=== PATIENT | male | born 1950 | race Caucasian/White ===

== ENCOUNTER 2018-06-20 20:08 | Emergency (ER) | payer MEDICARE, OTHER ==
[2018-06-20 20:21] LABS: #Basophils 0.1 thou/uL (0.0-0.2); #Eosinphils 0.2 thou/uL (0.0-0.7); #Lymphocytes 2.3 thou/uL (1.20-3.40); #Monocytes 0.5 thou/uL (0.11-0.59); #Neutrophils 3.9 thou/uL (1.40-6.50); %Basophils 1.2 % (0.0-1.0); %Eosinophils 2.9 % (0.0-10.0); %Lymphocytes 32.6 % (21.0-51.0); %Monocytes 7.6 % (0.0-10.0); %Neutrophils 55.8 % (42.0-75.0); Hemoglobin 14.2 g/dL (14.0-18.0); Mean Corpuscular HGB CONC 35.1 g/dL (32.0-36.0); Mean Corpuscular Hemoglobin 31.3 pg (27.0-31.0); Mean Corpuscular Volume 89.3 fL (78.0-98.0); Mean Platelet Volume 7.5 fL (7.4-10.4); Platelet Count 135 thou/uL (130-400); RBC Distribution Width 11.5 % (11.5-14.5); Red Blood Cell (RBC) Count 4.53 mill/uL (4.70-6.10)
[2018-06-20 20:38] LABS: ALT (SGPT) 27 U/L (8-55); AST (SGOT) 27 U/L (5-34); Albumin 4.3 g/dL (3.4-4.8); Alkaline Phosphatase 82 U/L (40-150); Anion Gap 14 mmol/L (10-20); BUN (Urea Nitrogen) 18 mg/dL (8.4-25.7); Bilirubin, Total 0.5 mg/dL (0.2-1.2); Calc. Creatinine Clearance 0 mL/min (70-130); Calcium 9.8 mg/dL (7.8-10.44); Carbon Dioxide 26 mmol/L (23-31); Chloride 105 mmol/L (98-107); Estimated GFR-MDRD 50; Globulin 2.8 g/dL (2.4-3.5); Glucose 143 mg/dL (80-115); Potassium 3.9 mmol/L (3.5-5.1); Protein, Total 7.1 g/dL (5.8-8.1); Sodium 141 mmol/L (136-145)
--- NOTE | 2018-06-20 23:29 | RAD ---
PORTABLE CHEST 9 AP portable film at 1945 is compared with a 09/19/15 study. The heart is upper normal in size but there are no congestive changes or pleural effusions. The lungs are clear. There is no mediastinal widening or shift. IMPRESSION: No acute thoracic finding. POS: HOME
--- NOTE | 2018-06-20 23:36 | CT ---
CT CHEST, ABDOMEN AND PELVIS WITHOUT CONTRAST 06/20/[address] of the chest, abdomen and pelvis was performed for evaluation following trauma. The scan wa s done without IV contrast due to a reported contrast allergy. Axial slices were acquired, then coron al and sagittal reconstructions were done. CT OF THE THORAX: The lungs are fully inflated and clear. There is no sign of contusion, pneumothorax, or pleural effus ions. The mediastinum showed no widening or hematoma. Coronary artery calcifications are noted in the LAD. No mediastinal mass or adenopathy was seen. A hiatal hernia is noted in the lower chest in the midline. The surrounding ribs and thoracic vertebrae all appeared intact. CT ABDOMEN AND PELVIS: The liver, spleen, pancreas, gallbladder, adrenal glands, kidneys and abdominal aorta showed no acute findings within the limitations of a noncontrast study. There was no sign of laceration or hematoma of any major organ. The bowel shows no distention or wall thickening. There is no free air or free fl uid seen. CT of the pelvis shows no pelvic masses, fluid collections, or hematomas. The pelvic bones and lumbar spine all appeared intact. An incidental finding was an ovoid 2.8 cm near water density mass in the midline of the anterior abdo kiara wall a few centimeters above the umbilicus. It may be a small cyst, but it is of no real concer n. IMPRESSION: 1. No acute traumatic findings. 2. Hiatal hernia. 3. Other changes as listed above. POS: HOME
== END 2018-06-20 21:12 | disposition home or self-care (01) ==
LOC: BURERS 20:08
DX: S20.212A Contusion of left front wall of thorax, initial encounter (principal); S80.11XA Contusion of right lower leg, initial encounter; I47.1 Supraventricular tachycardia; Z79.899 Other long term (current) drug therapy; W55.29XA Other contact with cow, initial encounter
CPT/HCPCS: 71045; 71250; 71260; 74177; 80053; 83605; 85025

== ENCOUNTER 2019-08-24 13:13 | Emergency (ER) | payer MEDICARE ==
[2019-08-24] MEDS ORDERED: Aspirin Chewable 81 MG TAB ONE (13:18)
[2019-08-24 13:38] LABS: INR-International Normal Ratio 1.1; Prothrombin Time 13.7 SEC (12.0-14.7)
[2019-08-24 13:48] LABS: ALT (SGPT) 24 U/L (8-55); AST (SGOT) 21 U/L (5-34); Albumin 4.1 g/dL (3.4-4.8); Alkaline Phosphatase 66 U/L (40-110); Anion Gap 12 mmol/L (10-20); BUN (Urea Nitrogen) 22 mg/dL (8.4-25.7); Bilirubin, Total 0.5 mg/dL (0.2-1.2); Calc. Creatinine Clearance 0 mL/min (70-130); Calcium 8.9 mg/dL (7.8-10.44); Carbon Dioxide 25 mmol/L (23-31); Chloride 106 mmol/L (98-107); Estimated GFR-MDRD 63; Globulin 2.5 g/dL (2.4-3.5); Glucose 169 mg/dL (80-115); Potassium 3.9 mmol/L (3.5-5.1); Protein, Total 6.6 g/dL (5.8-8.1); Sodium 139 mmol/L (136-145)
[2019-08-24] MEDS ORDERED: methylPREDNISolone Sod Succ/PF 125 MG/2 ML VIAL ONE (13:48)
[2019-08-24] MEDS ORDERED: Famotidine In NaCl 20 mg/50 ml Premix Bag ONE (13:48)
[2019-08-24] MEDS ORDERED: diphenhydrAMINE 50 MG/ML VIAL ONE (13:48)
[2019-08-24 13:49] LABS: #Eosinphils 0.2 thou/uL (0.0-0.7); #Lymphocytes 1.8 thou/uL (1.20-3.40); #Monocytes 0.4 thou/uL (0.11-0.59); #Neutrophils 3.2 thou/uL (1.40-6.50); %Basophils 0.9 % (0.0-1.0); %Eosinophils 3.2 % (0.0-10.0); %Lymphocytes 31.9 % (21.0-51.0); %Monocytes 6.7 % (0.0-10.0); %Neutrophils 57.3 % (42.0-75.0); Hemoglobin 13.7 g/dL (14.0-18.0); Mean Corpuscular HGB CONC 31.6 g/dL (32.0-36.0); Mean Corpuscular Hemoglobin 30.5 pg (27.0-31.0); Mean Corpuscular Volume 96.3 fL (78.0-98.0); Mean Platelet Volume 7.8 fL (7.4-10.4); Platelet Count 118 thou/uL (130-400); Red Blood Cell (RBC) Count 4.48 mill/uL (4.70-6.10); White Blood Cell (WBC) Count 5.5 thou/uL (4.8-10.8)
[2019-08-24 13:50] LABS: MDiff Complete? YES; Platelet Morphology Comment Appears Decreased
--- NOTE | 2019-08-24 13:54 | CT ---
CT OF THE BRAIN WITHOUT CONTRAST: 08/24/[address] was done for evaluation of possible stroke. The ventricles are normal in size with n o shift. No territorial stroke pattern was seen. There are several areas of patchy hypodensities thro ughout the deep white matter bilaterally that are most typical of chronic ischemic change. Small foca l acute strokes would be missed against this background. There is no bleeding, mass, or edema. The s kull appears normal. The visible paranasal sinuses and mastoid air cells are clear. IMPRESSION: Chronic ischemic changes but no definite acute findings. See limitations above. Findings discussed with Dr. Wen at 1330 on 08/24/19. POS: HOME
== END 2019-08-24 14:52 | disposition short-term general hospital (02) ==
LOC: BURERS 13:13
DX: I63.9 Cerebral infarction, unspecified (principal); I10 Essential (primary) hypertension; F41.9 Anxiety disorder, unspecified; F32.9 Major depressive disorder, single episode, unspecified; Z79.899 Other long term (current) drug therapy
CPT/HCPCS: 70450; 80053; 84484; 85025; 85610; 93005; 96374; 96375; 96376; J1200; J2930

== ENCOUNTER 2024-02-21 15:28 | Emergency (ER) | payer MEDICARE ==
[2024-02-21 16:23] LABS: #Eosinophils 0.1 thou/uL (0.0-0.7); #Lymphocytes 0.8 thou/uL (1.20-3.40); #Monocytes 0.5 thou/uL (0.11-0.59); %Basophils 0.4 % (0.0-1.0); %Eosinophils 1.3 % (0.0-10.0); %Monocytes 7.1 % (0.0-10.0); %Neutrophils 79.2 % (42.0-75.0); Hematocrit 42.5 % (42.0-52.0); Hemoglobin 13.7 g/dL (14.0-18.0); Mean Corpuscular HGB CONC 32.2 g/dL (32.0-36.0); Mean Corpuscular Hemoglobin 31.1 pg (27.0-31.0); Mean Corpuscular Volume 96.7 fl (78.0-98.0); Mean Platelet Volume 6.1 fL (7.4-10.4); Platelet Count 155 10x3/uL (130-400); RBC Distribution Width 11.1 % (11.5-14.5); White Blood Cell (WBC) Count 6.3 10x3/uL (4.8-10.8)
[2024-02-21 16:36] LABS: Troponin I Less than 0.010 ng/mL (< 0.028)
[2024-02-21 16:56] LABS: ALT (SGPT) 20 U/L (8-55); AST (SGOT) 23 U/L (5-34); Albumin 3.4 g/dL (3.4-4.8); Alkaline Phosphatase 120 U/L (40-110); Anion Gap 16 mmol/L (10-20); BUN (Urea Nitrogen) 16 mg/dL (8.4-25.7); Bilirubin, Total 0.2 mg/dL (0.2-1.2); Calc. Creatinine Clearance 0 mL/min (70-130); Calcium 9.3 mg/dL (7.8-10.44); Carbon Dioxide 22 mmol/L (23-31); Chloride 105 mmol/L (98-107); Estimated GFR 86; Globulin 3.2 g/dL (2.4-3.5); Glucose 133 mg/dL (83-110); Potassium 4.4 mmol/L (3.5-5.1); Protein, Total 6.6 g/dL (5.8-8.1); Sodium 139 mmol/L (136-145)
[2024-02-21] MEDS ORDERED: Lorazepam 2 MG/ML VIAL ONE (16:58)
[2024-02-21 16:59] LABS: Bilirubin Negative (Negative); Blood, Urine Negative (Negative); Clarity Cloudy (Clear); Glucose, Urine (Dipstick) 250 mg/dL (Negative); Ketone, Urine Negative (Negative); Leukocyte Negative (Negative); Nitrite Negative (Negative); Protein, Urine (Dipstick) Negative (Neg-Trace); pH, Urine 7.5 (5.0-9.0)
[2024-02-21 17:00] LABS: Bacteria/HPF 1+ HPF (None Seen); CAUTI Indications for Culture Alt mental st,lethar; RBC/HPF None Seen HPF (0-3); Squamous Epithelial 0-3 HPF (0-3); WBC/HPF None Seen HPF (0-3)
[2024-02-21 17:01] LABS: Urine Culture Reflex No No
== END 2024-02-21 18:31 | disposition home or self-care (01) ==
LOC: BURERS 15:28
DX: R19.7 Diarrhea, unspecified (principal); F41.9 Anxiety disorder, unspecified; I10 Essential (primary) hypertension; Z79.82 Long term (current) use of aspirin; Z79.899 Other long term (current) drug therapy
CPT/HCPCS: 71045; 80053; 81001; 84484; 85025; 93005; 96360; J2060

== ENCOUNTER 2024-06-14 18:15 | Emergency (ER) | payer MEDICARE ==
[2024-06-14] MEDS ORDERED: Benzonatate 100 MG CAP ONE (18:44)
[2024-06-14] MEDS ORDERED: predniSONE 20 MG TAB ONE (18:44)
[2024-06-14] MEDS ORDERED: Acetaminophen 500 MG TAB ONE (18:44)
== END 2024-06-14 19:23 ==
LOC: BURERS 18:15
DX: J11.1 Influenza due to unidentified influenza virus with other respiratory manifestations (principal); I10 Essential (primary) hypertension; Z79.82 Long term (current) use of aspirin; Z79.899 Other long term (current) drug therapy
CPT/HCPCS: 87400; 87426; 99283; J7512

== ENCOUNTER 2025-03-23 15:35 | Emergency (ER) | payer MEDICARE ==
[2025-03-23 16:17] LABS: Hematocrit 42.3 % (42.0-52.0); Hemoglobin 14.5 g/dL (14.0-18.0); Mean Corpuscular Hemoglobin 32.4 pg (27.0-31.0); Mean Corpuscular Volume 94.8 fl (78.0-98.0); Platelet Count 144 10x3/uL (130-400); Red Blood Cell (RBC) Count 4.46 mill/uL (4.70-6.10); White Blood Cell (WBC) Count 11.6 10x3/uL (4.8-10.8)
[2025-03-23 16:25] LABS: ALT (SGPT) 17 U/L (Less than 45); AST (SGOT) 22 U/L (11-34); Albumin 4.1 g/dL (3.1-4.5); Alkaline Phosphatase 110 U/L (40-110); Anion Gap 15 mmol/L (10-20); BUN (Urea Nitrogen) 20 mg/dL (8.4-25.7); Bilirubin, Total 0.6 mg/dL (0.3-1.2); Calc. Creatinine Clearance 0 mL/min (70-130); Calcium 9.6 mg/dL (7.8-10.44); Carbon Dioxide 24 mmol/L (23-31); Chloride 105 mmol/L (98-107); Globulin 2.7 g/dL (2.4-3.5); Glucose 159 mg/dL (83-110); Potassium 4.3 mmol/L (3.5-5.1); Sodium 140 mmol/L (136-145)
[2025-03-23 16:27] LABS: MDiff Complete? YES
[2025-03-23] MEDS ORDERED: Ketorolac Tromethamine 30 MG (1 mL) VIAL ONE (17:14)
[2025-03-23 17:42] LABS: CAUTI Indications for Culture Dysuria,urgency,freq; Glucose, Urine (Dipstick) Negative (Negative); Leukocyte Negative (Negative); Protein, Urine (Dipstick) Negative (Neg-Trace); RBC/HPF None Seen HPF (0-3); Specific Gravity, Urine 1.020 (1.005-1.030); WBC/HPF None Seen HPF (0-3)
[2025-03-23 17:43] LABS: Bacteria/HPF None Seen HPF (None Seen); Urine Culture Reflex No No
== END 2025-03-23 18:08 | disposition short-term general hospital (02) ==
LOC: BURERS 15:35
DX: K37 Unspecified appendicitis (principal); I10 Essential (primary) hypertension; Z79.899 Other long term (current) drug therapy; Z79.82 Long term (current) use of aspirin
CPT/HCPCS: 74176; 80053; 81001; 85025; 96374; 96375; J1885; J2543